=== PATIENT | male | born 1935 | race Caucasian/White ===

== ENCOUNTER 2017-01-31 18:03 | Emergency (ER) | payer OTHER ==
[~2017-01-31] VITALS: Ht 165.1 cm; Wt 63.5 kg
[~2017-01-31 18:03] MED LIST: ADULT LOW DOSE81 MG PO; ALLOPURINOL 30300 M1 PO; CARDIZEM CD240 MG PO; CARDIZEM PO; CARVEDILOL25 MG PO; CENTRUM TABLET1 EACH PO; CLONIDINE PO; COUMADIN 5 MG TA5 M1 PO; CRESTOR10 MG PO; ENABLEX15 MG PO; FLOMAX PO; FUROSEMIDE 40 M40 M1 PO; HYDROCODON-ACE1 EAC7 PO; JANUVIA25 MG PO; K-DUR 20 MEQ T20 MEQ PO; KLOR-CON 10 ER10 MEQ PO; KLOR-CON 1010 MEQ PO; LANOXIN 0.120.125 M1 PO; LANTUS SQ; LIPITOR40 MG PO; LISINOPRIL40 MG PO; LOPRESSOR PO; LOPRESSOR25 PO; MULTI VITAMIN1 EACH PO; NORVASC10 MG PO; NOVOLOG MI100 UNIT/2 SQ; ROCALTROL0.25 MCG PO; TEKTURNA300 MG PO; TORSEMIDE20 MG PO; TRADJENTA5 MG PO; ZOFRAN ODT4 MG PO
[2017-01-31 20:34] LABS: HEMATOCRIT 30.3 % (42.0-52.0); HEMOGLOBIN 9.8 gm/dL (14.0-18.0); MCHC 32.4 g/dL (28.0-37.0); MCV 89.7 fL (80.0-100.0); PLATELET COUNT 323 thou/uL (150-400); RBC 3.38 mil/uL (4.50-6.00); RDW 18.5 % (10.5-14.5); WBC 6.1 thou/uL (4.0-11.0)
[2017-01-31 20:44] LABS: MANUAL DIFF YES
[2017-01-31 20:50] LABS: CALCIUM 9.1 mg/dL (8.5-10.1); CREATININE 5.3 mg/dL (0.7-1.3); POTASSIUM 3.9 mmol/L (3.5-5.1)
[2017-01-31 21:49] LABS: ANISOCYTOSIS 2+; ATYPICAL LYMPHS 1 %; TOTAL CELL COUNT 100
== END 2017-02-01 00:44 | disposition home or self-care (01) ==
LOC: ER 18:03
PROVIDERS: Emergency Medicine
DX: L03.115 Cellulitis of right lower limb (principal); N18.9 Chronic kidney disease, unspecified; I48.2 Chronic atrial fibrillation; M06.9 Rheumatoid arthritis, unspecified; Z99.2 Dependence on renal dialysis; Z88.8 Allergy status to other drugs, medicaments and biological substances